=== PATIENT | female | born 1975 | race Caucasian/White ===

== ENCOUNTER → 2017-01-18 | Outpatient (CLI) | payer OTHER ==
--- NOTE | 2017-01-18 17:27 | US ---
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 GLAND SIZE: Right Lobe: 5.0 x 1.8 x 1.8 cm Overall Parenchyma: heterogenous Left Lobe: 5.5 x 2.1 x 2.2 cm Overall Parenchyma: heterogeneous Isthmus Thickness: 0.2 cm NODULES RIGHT: # of nodules measured on right: 4 1. 0.9 X 0.6 x 0.6 cm hypoechoic solid nodule at the upper pole with well-defined margins. This nod ule is wider than tall and shows intranodular vascularity. Prior size: 0.9 x 0.6 x 0.6 cm 2. 1.1 X 0.8 x 0.7 cm hypoechoic solid nodule at the mid pole with well-defined margin. This nodule is taller than wide and shows intranodular vascularity. Prior size: 1.0 x 0.6 x 0.7 cm 3. 0.7 X 0.6 x 0.4 cm hypoechoic solid nodule at the mid pole with well-defined margins. This nodul e is taller than wide and shows intranodular vascularity. Prior size: 1.1 x 0.6 x 0.9 cm 4. 0.7 X 0.4 x 0.7 cm hypoechoic solid nodule at the lateral/mid/lower pole with well-defined margin s . This nodule is wider than tall and shows no intranodular vascularity. Prior size: 1.2 x 0.8 x 1.1 cm LEFT: # of nodules measured on left: 2 1. 0.9 X 0.7 x 0.6 cm hypoechoic solid nodule at the upper pole with well-defined margins. This no dule is taller than wide and shows no intranodular vascularity. Prior size: 0.8 x 0.6 x 0.8 cm 2. 2.7 X 1.8 x 2.1 cm hypoechoic solid nodule at the mid/lower pole with well-defined margins . Thi s nodule is wider than tall and shows intranodular vascularity. Prior size: 2.8 x 1.5 x 2.0 cm ISTHMUS: # of nodules measured in the isthmus: 0 Bilateral neck scanned, no evidence of lymphadenopathy. No definite increasing thyroid abnormality. IMPRESSION: Numerous bilateral nodules. There is a dominant left-sided thyroid mass that is not changed in size c ompared to 03/05/2016. No increasing thyroid abnormality seen.
== END | disposition home or self-care (01) ==
LOC: RADUSWWP 16:38
PROVIDERS: ATTEND Internal Medicine
DX: E04.2 Nontoxic multinodular goiter (principal)
CPT/HCPCS: 76536

== ENCOUNTER → 2017-08-22 | Outpatient (CLI) | payer OTHER ==
--- NOTE | 2017-08-22 10:34 | US ---
EXAMINATION TYPE: US thyroid st tissue head/neck DATE OF EXAM: 08/22/2017 COMPARISON: US dated 01/18/2017 CLINICAL HISTORY: nontoxic multi nod goiter, E04.2. GLAND SIZE: Right Lobe: 4.9 x 1.9 x 1.5 cm Overall Parenchyma: homogenous Left Lobe: 5.5 x 1.7 x 2.2 cm Overall Parenchyma: homogeneous Isthmus Thickness: 0.3 cm NODULES RIGHT: # of nodules measured on right: 4 1. 0.9 X 0.6 x 0.6 cm hypoechoic solid nodule at the upper pole with well-defined margins . This n odule is wider than tall and shows intranodular vascularity. Prior size: 0.9 x 0.6 x 0.6 cm 2. 1.1 X 0.7 x 0.8 cm hypoechoic solid nodule at the mid pole with well-defined margins. This nodul e is wider than tall and shows intranodular vascularity. Prior size: 1.1 x 0.7 x 0.8 cm 3. 0.7 X 0.6 x 0.5 cm hypoechoic solid nodule at the mid pole with well-defined margins. This nodul e is wider than tall and shows intranodular vascularity. Prior size: 0.7 x 0.6 x 0.4 cm 4. 1.1 X 0.8 x 1.0 cm hypoechoic solid nodule at the lower pole with well-defined margins. This nod ule is wider than tall and shows intranodular vascularity. Prior size: 0.7 x 0.4 x 0.7 cm 2 priors ago: 1.2 x 0.8 x1.1cm LEFT: # of nodules measured on left: 2 1. 0.9 X 0.7 x 0.6 cm hypoechoic solid nodule at the upper pole with well-defined margins. This no dule is taller than wide and shows intranodular vascularity. Prior size: 0.9 X 0.7 x 0.6 cm 2. 2.9 X 1.7 x cm 2.2 solid nodule at the mid pole with well-defined margins. This nodule is wider than tall and shows intranodular vascularity. Prior size: 2.7 x 1.5 x 2.0 cm ISTHMUS: # of nodules measured in the isthmus: 0 IMPRESSION: Multiple thyroid nodules, no significant interval changes evident
== END | disposition home or self-care (01) ==
LOC: RADUSWWP 09:00
PROVIDERS: ATTEND Internal Medicine
DX: E04.2 Nontoxic multinodular goiter (principal)
CPT/HCPCS: 76536

== ENCOUNTER → 2017-09-09 | Outpatient (CLI) | payer OTHER ==
--- NOTE | 2017-09-10 09:04 | MM ---
Reason for exam: screening (asymptomatic). Last mammogram was performed 4 years and 10 months ago. History: Patient had first child at age 33. Family history of breast cancer in maternal grandmother at age 50. Took hormonal contraceptives for 5 years. Physical Findings: A clinical breast exam by your physician is recommended on an annual basis and results should be correlated with mammographic findings. MG Screening Mammo w CAD Bilateral CC and MLO view(s) were taken. Prior study comparison: October 29, 2012, bilateral digital screening mammo w/CAD. The breast tissue is heterogeneously dense. This may lower the sensitivity of mammography. There is no discrete abnormality. No significant changes when compared with prior studies. ASSESSMENT: Negative, BI-RAD 1 RECOMMENDATION: Routine screening mammogram of both breasts in 1 year.
== END | disposition home or self-care (01) ==
LOC: RADMAMWWP 10:20
PROVIDERS: ATTEND Obstetrics & Gynecology
DX: Z12.31 Encounter for screening mammogram for malignant neoplasm of breast (principal)
CPT/HCPCS: 77067

== ENCOUNTER → 2018-03-20 | Outpatient (CLI) | payer OTHER ==
--- NOTE | 2018-03-20 11:10 | US ---
EXAMINATION TYPE: US thyroid st tissue head/neck DATE OF EXAM: 03/20/2018 COMPARISON: US CLINICAL HISTORY: E04.2 Nontoxic multinodular goiter. GLAND SIZE: Right Lobe: 5.1 x 1.5 x 1.6 cm Overall Parenchyma: homogenous Left Lobe: 5.9 x 1.8 x 2.1 cm Overall Parenchyma: homogeneous Isthmus Thickness: 0.2 cm NODULES RIGHT: # of nodules measured on right: 4 1. 0.9 X 0.6 x 0.6 cm hypoechoic solid nodule at the upper pole with well- defined margins . This nod ule is wider than tall and shows intranodular vascularity. Prior size: 0.9 x 0.5 x 0.6 cm 2. 1.1 X 0.7 x 0.8 cm hypoechoic solid nodule at the mid pole with well- defined margins. This nodule is wider than tall and shows intranodular vascularity. Prior size: 1.1 x 0.7 x 0.8 cm 3. 0.7 X 0.6 x 0.5 cm hypoechoic solid nodule at the mid pole with well- defined margins. This nodul e is wider than tall and shows intranodular vascularity. Prior size: 0.7 x 0.6 x 0.5 cm 4. 1.1 X 0.8 x 1.0 cm hypoechoic solid nodule at the lower pole with well- defined margins. This nodu le is wider than tall and shows intranodular vascularity. Prior size: 1.1 X 0.8 x 1.0cm LEFT: # of nodules measured on left: 2 1. 0.9 X 0.7 x 0.6 cm hypoechoic solid nodule at the upper pole with well- defined margins. This nodu le is taller than wide and shows intranodular vascularity. Prior size: 0.9 X 0.7 x 0.6 cm 2. 2.9 X 1.7 x cm 2.2cm solid nodule at the mid pole with well-defined margins. This nodule is wider than tall and shows intranodular vascularity. Prior size: 2.9 X 1.7 x cm 2.2 cm Bilateral neck scanned, no evidence of lymphadenopathy. IMPRESSION: Stable bilateral thyroid nodules including nodules larger than one centimeter.
== END | disposition home or self-care (01) ==
LOC: RADUSWWP 09:31
PROVIDERS: ATTEND Internal Medicine
DX: E04.2 Nontoxic multinodular goiter (principal)
CPT/HCPCS: 76536

== ENCOUNTER → 2019-02-25 | Outpatient (CLI) | payer OTHER ==
--- NOTE | 2019-02-26 09:16 | MM ---
Reason for exam: screening (asymptomatic). Last mammogram was performed 1 year and 6 months ago. History: Patient had first child at age 33. Family history of breast cancer in maternal grandmother at age 50. Took hormonal contraceptives for 5 years. Physical Findings: A clinical breast exam by your physician is recommended on an annual basis and results should be correlated with mammographic findings. MG Screening Mammo w CAD Bilateral CC and MLO view(s) were taken. Prior study comparison: September 09, 2017, bilateral MG screening mammo w CAD. October 29, 2012, bilateral digital screening mammo w/CAD. The breast tissue is heterogeneously dense. This may lower the sensitivity of mammography. There are benign appearing round calcifications in the left breast. ASSESSMENT: Benign, BI-RAD 2 RECOMMENDATION: Routine screening mammogram of both breasts in 1 year.
== END | disposition home or self-care (01) ==
LOC: RADMAMWWP 15:06
PROVIDERS: ATTEND Obstetrics & Gynecology
DX: Z12.31 Encounter for screening mammogram for malignant neoplasm of breast (principal)
CPT/HCPCS: 77067

== ENCOUNTER → 2020-04-12 | Outpatient (CLI) | payer BC ==
[2020-04-12 17:40] LABS: T4, Free (Free Thyroxine) 1.03 ng/dL (0.78-2.19)
--- NOTE | 2020-04-13 09:49 | US ---
EXAMINATION TYPE: US thyroid st tissue head/neck DATE OF EXAM: 04/12/2020 COMPARISON: 03/20/2018 CLINICAL HISTORY: NONTOXIC MULTINODULAR GOITER E04.2. follow up on previous nodules, multiple FNA's i n 2016 GLAND SIZE: Right Lobe: 5.3 x 1.7 x 2.1 cm Overall Parenchyma: heterogenous Left Lobe: 6.0 x 2.5 x 2.0 cm Overall Parenchyma: heterogeneous Isthmus Thickness: 0.3 cm NODULES RIGHT: # of nodules measured on right: 4. There may be increased vascularity within the right lower lobe nodules. 1. 1.2 X 1.3 x 0.8 cm hypoechoic solid nodule at the mid pole with well-defined margins; present wi th microcalcifications. This nodule is wider than tall and shows intranodular vascularity. Prior size: 1.1 x 0.8 x 1.0 cm 2. 1.2 X 0.8 x 1.0 cm hypoechoic mixed nodule at the mid pole with well-defined margins; present wit h microcalcifications. This nodule is wider than tall and shows intranodular vascularity. Prior size: 1.1 x 0.7 x 0.8 cm 3. 1.1 X 0.6 x 1.0 cm hypoechoic solid nodule at the mid pole with well-defined margins. This nodul e is wider than tall and shows intranodular vascularity. Prior size: 0.7 x 0.5 x 0.6 cm 4. 1.1 X 0.8 x 0.6 cm hypoechoic solid nodule at the upper pole with well-defined margins. This nod ule is wider than tall and shows intranodular vascularity. Prior size: 0.9 x 0.5 x 0.6 cm LEFT: # of nodules measured on left: 2 1. 3.4 X 2.4 x 1.7 cm hypoechoic mixed nodule at the mid pole with well-defined margins. This nodu le is wider than tall and shows intranodular vascularity. Prior size: 2.9 x 2.2 x 1.7 cm 2. 1.1 X 0.7 x 0.7 cm hypoechoic solid nodule at the upper pole with well-defined margins. This nod ule is wider than tall and shows intranodular vascularity. Prior size: 0.9 x 0.6 x 0.4 cm ISTHMUS: # of nodules measured in the isthmus: 0 Bilateral neck scanned, no evidence of lymphadenopathy. IMPRESSION: 1. Mild enlargement of both left and right thyroid nodules.
== END | disposition home or self-care (01) ==
LOC: RADUSWWP 15:34
PROVIDERS: ATTEND Internal Medicine
DX: E04.2 Nontoxic multinodular goiter (principal)
CPT/HCPCS: 36415; 76536; 84439; 84443; 84480

== ENCOUNTER → 2020-07-20 | Outpatient (CLI) | payer BC ==
--- NOTE | 2020-07-22 13:30 | MM ---
Reason for exam: screening (asymptomatic). Last mammogram was performed 1 year and 5 months ago. History: Patient had first child at age 33. Family history of breast cancer in maternal grandmother at age 50. Took hormonal contraceptives for 5 years. Physical Findings: A clinical breast exam by your physician is recommended on an annual basis and results should be correlated with mammographic findings. MG Screening Mammo w CAD Bilateral CC and MLO view(s) were taken. Prior study comparison: February 25, 2019, bilateral MG screening mammo w CAD. September 09, 2017, bilateral MG screening mammo w CAD. The breast tissue is heterogeneously dense. This may lower the sensitivity of mammography. No significant changes when compared with prior studies. ASSESSMENT: Benign, BI-RAD 2 RECOMMENDATION: Routine screening mammogram of both breasts in 1 year.
== END | disposition home or self-care (01) ==
LOC: RADMAMWWP 16:02
PROVIDERS: ATTEND Obstetrics & Gynecology
DX: Z12.31 Encounter for screening mammogram for malignant neoplasm of breast (principal)
CPT/HCPCS: 77067

== ENCOUNTER → 2020-08-03 | Outpatient (CLI) | payer BC ==
[2020-08-03 20:54] LABS: Thyroid Peroxidase Antibodies 37.1 U/mL (0.0-60.0)
== END | disposition home or self-care (01) ==
LOC: LABWHC1 14:15
PROVIDERS: ATTEND Internal Medicine
DX: E04.2 Nontoxic multinodular goiter (principal); R94.6 Abnormal results of thyroid function studies
CPT/HCPCS: 36415; 84439; 84443; 84445; 84480; 86376; 86800

== ENCOUNTER → 2020-08-23 | Outpatient (CLI) | payer BC, OTHER ==
--- NOTE | 2020-08-23 20:33 | CONS ---
CONSULTATION REASON FOR CONSULTATION: Movement disorder, nocturnal. This is a 45-year-old female patient, healthy, without any major medical problems or comorbidities. 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 She is noticing that she has increased fatigue recently. At the same time, she has had issues with abnormal leg movement activity since childhood. The patient reports that while sleeping on her abdomen, her legs thump, and this activity would go on unless her bed partner put her hand on her legs to stop the movement. In most cases, stopping one leg from thumping will lead to the other leg doing the same. The exact timing and duration and repetitiveness of this movement activity is not clear based on the description given by the patient. No arm movements unless the patient is sleeping on her back, and she sometimes raises her arms and has her harms reach her face or head. Note that she does not wake up during these episodes and she continues to maintain her sleep. No history of any seizure activity occurring during the day. No history of any epilepsy, although her son, who is age 11, has a history of generalized convulsive tonic clonic seizure activity and seizures and has been maintained on treatment with Depakote. He has done well over the years. As for the patient, she never had any seizure activity, no loss of consciousness, and she admits having snoring. No witnessed apneas. No symptoms to suggest restless legs syndrome. No creepy-crawly sensation involving the lower extremities. No sleepwalking or sleeptalking. No dreams. No aggressive behavior to indicate any form of REM behavioral disorder. No head trauma. No substance abuse. No history of seizures. No history of strokes. No history of any other medical problems and comorbidities, and no other complaints otherwise. She is feeling a bit more tired and sleepy during the day. PAST MEDICAL HISTORY: Scoliosis of the spine; otherwise negative. PAST SURGICAL HISTORY: Appendectomy and tonsillectomy. SOCIAL HISTORY: The patient is a nonsmoker. No history of alcoholism. No history of IV drugs. FAMILY HISTORY: Positive for seizure activity/epilepsy in her son. ALLERGIES: ERYTHROMYCIN and SEASONAL ALLERGIES. MEDICATIONS: None. REVIEW OF SYSTEMS: Fourteen-point review of systems was done. Positive findings are all mentioned above in the history of present illness. PHYSICAL EXAMINATION: HER CURRENT VITALS: BP is 125/76, pulse 66, respirations 12, temperature 98.3, saturation 99% on room air. BMI 31. Cardale score is 9. Neck size 13-1/2 inches. Weight is 181. GENERAL APPEARANCE: Calm, comfortable. No acute distress. HEAD: Atraumatic, normocephalic. NECK: Supple. No JVD. No goiter or neck masses. Mallampati class IV. LUNGS: Clear to auscultation. HEART: Heart sounds are regular rate and rhythm. Normal S1, S2. No S3, S4. No murmurs. ABDOMEN: Soft, nontender. No organomegaly. EXTREMITIES: No edema. No cyanosis or clubbing. IMPRESSION: Nocturnal movement disorder, not well characterized based on the description given by the patient. Nevertheless, this seems to be a benign disorder. It has been going on for many years and the patient reports these movements whenever she is sleeping on her stomach in a prone body position. These limb activities are less likely to occur when she is on her side or on her back. No clear indication for any chronic sleep breathing disorder. The presentation is not typical of sleep-related muscle cramps or seizure activity or myoclonus. Again the description is not typical of rhythmic movement disorder. It is possible that we may be dealing with a hypnagogic foot tremor and alternating leg muscle activation, which is a condition or disorder that is generally picked up by polysomnogram. As mentioned, epilepsy is felt to be less likely. PLAN: This patient has rhythmic movement disorder during sleep. No clear indication for underlying epilepsy. No clear indication of an underlying parasomnia. Will proceed with a screening polysomnogram to evaluate this abnormality. Will need to rule out the possibility of any seizure activity. Will need to rule out possibility of REM behavioral disorder or any other parasomnias. Treatment is to follow if needed. MMODL / IJN: [id number] /
== END ==
LOC: SLEEP 15:08
PROVIDERS: ATTEND Internal Medicine Critical Care Medicine
DX: G47.69 Other sleep related movement disorders (principal)
CPT/HCPCS: 99211

== ENCOUNTER → 2021-09-08 | Outpatient (CLI) | payer BC ==
--- NOTE | 2021-09-12 10:07 | MM ---
Reason for exam: screening (asymptomatic). Last mammogram was performed 1 year and 2 months ago. History: Patient had first child at age 33. Family history of breast cancer in maternal grandmother at age 50. Took hormonal contraceptives for 5 years. Physical Findings: A clinical breast exam by your physician is recommended on an annual basis and results should be correlated with mammographic findings. MG Screening Mammo w CAD Bilateral CC and MLO view(s) were taken. Prior study comparison: July 20, 2020, bilateral MG screening mammo w CAD. February 25, 2019, bilateral MG screening mammo w CAD. There are scattered fibroglandular densities. There are benign appearing round calcifications in the left breast. There is no discrete abnormality. ASSESSMENT: Benign, BI-RAD 2 RECOMMENDATION: Routine screening mammogram of both breasts in 1 year.
== END | disposition home or self-care (01) ==
LOC: RADMAMWWP 16:07
PROVIDERS: ATTEND Obstetrics & Gynecology
DX: Z12.31 Encounter for screening mammogram for malignant neoplasm of breast (principal); Z80.3 Family history of malignant neoplasm of breast
CPT/HCPCS: 77067

== ENCOUNTER → 2022-04-20 | Outpatient (CLI) | payer BC ==
--- NOTE | 2022-04-20 16:21 | US ---
EXAMINATION TYPE: US thyroid st tissue head/neck DATE OF EXAM: 04/20/2022 COMPARISON: NONE CLINICAL HISTORY: E04.1 NONTOXIC SINGLE THYROID NODULE. Thyroid nodules. GLAND SIZE: Right Lobe: 5.6 x 1.9 x 1.5 cm Overall Parenchyma: heterogenous Left Lobe: 6.1 x 1.9 x 1.9 cm Overall Parenchyma: heterogeneous Isthmus Thickness: 0.3 cm NODULES Bilateral thyroid nodules which are not terribly different given differences in measuring technique. RIGHT: # of nodules measured on right: 4 1. 1.2 X 0.8 x 1.2 cm, mid , solid or almost completely solid, hypoechoic nodule, which is wider edmundo n tall, with smooth margins, without echogenic foci. Prior size: 1.2 x .8 x 1.3 cm 2. 1.1 X 0.6 x 1.0 cm, mid , solid or almost completely solid, hypoechoic nodule, which is wider th an tall, with smooth margins, without echogenic foci. Prior size: 1.2 x 0.8 x 1.0 cm 3. 1.1 X 0.7 x 0.7 cm, mid , solid or almost completely solid, hypoechoic nodule, which is wider th an tall, with smooth margins, without echogenic foci. Prior size: 1.1 x 0.6 x 1.0 cm LEFT: # of nodules measured on left: 2 1. 3.4 X 1.6 x 2.6 cm, lower , solid or almost completely solid, hypoechoic nodule, which is wider than tall, with smooth margins, without echogenic foci. Prior size: 3.4 x 1.7 x 2.4 cm 2. 1.1 X 0.6 x 0.9 cm, upper , solid or almost completely solid, hypoechoic nodule, which is wider than tall, with smooth margins, without echogenic foci. Prior size: 1.1 x 0.7 x 0.7 cm ISTHMUS: # of nodules measured in the isthmus: 0 Bilateral neck scanned, no evidence of lymphadenopathy. IMPRESSION: Multiple thyroid nodules bilaterally, Overall majority of these are TIRADS Score: 4. Continued attent ion on follow-up imaging in one year consider biopsy of any 1.5 cm if not already performed. TIRADS Category 4: Moderately Suspicious Composition: Solid or almost completely solid (2 points). Echogenicity: Hypoechoic (2 points). Shape: Wider than tall (0 points). Margin: Smooth (0 points). Echogenic foci: None or large comet-tail artifacts (0 points) Recommendation: If >1.5cm: FNA; If >1cm: Follow up at 1,3,5 years
== END | disposition home or self-care (01) ==
LOC: RADUSWWP 15:28
PROVIDERS: ATTEND Family Medicine
DX: E04.2 Nontoxic multinodular goiter (principal)
CPT/HCPCS: 76536

== ENCOUNTER → 2023-12-26 | Outpatient (CLI) | payer BC ==
[2023-12-26 15:47] LABS: T4, Free (Free Thyroxine) 1.13 ng/dL (0.80-1.80)
== END | disposition home or self-care (01) ==
LOC: LABWHC1 11:00
PROVIDERS: ATTEND Internal Medicine Endocrinology, Diabetes & Metabolism
DX: E05.00 Thyrotoxicosis with diffuse goiter without thyrotoxic crisis or storm (principal)
CPT/HCPCS: 36415; 84439; 84443; 84481

== ENCOUNTER → 2024-03-02 | Outpatient (CLI) | payer BC ==
--- NOTE | 2024-03-17 09:25 | CT ---
EXAMINATION TYPE: CT iac wo con DATE OF EXAM: 03/02/2024 COMPARISON: None HISTORY: Tinnitus and hearing loss x years CT DLP: 142.7 mGycm Automated exposure control for dose reduction was used. Contrast: None Technique: Axial images 1 mm thick sections. Reconstructed images in the coronal plane. FINDINGS: Maxillary sinuses are clear. Mastoid air cells are clear. Mild mucosal thickening is in ethmoid air c ells. Sphenoid sinuses are clear. Frontal sinuses are clear. Internal auditory canals appear normal without expansion or erosion. Semicircular canals appear holly l. Cochlea are unremarkable. Incus and malleus have normal orientation middle ears are clear. Externa l auditory canals are unremarkable no suspicious cerebellar pontine angle mass is evident. There is mild right septal deviation. Right oswaldo bullosa is present. Ostiomeatal units are patent. IMPRESSION: 1. NO SUSPICIOUS ABNORMALITY TO ACCOUNT FOR TINNITUS AND HEARING LOSS. [facility], Workstation: [id number], 03/17/2024 9:23 AM
== END | disposition home or self-care (01) ==
LOC: RADCTMAIN 17:05
PROVIDERS: ATTEND Otolaryngology
DX: H93.19 Tinnitus, unspecified ear (principal); H91.90 Unspecified hearing loss, unspecified ear
CPT/HCPCS: 70480

== ENCOUNTER → 2024-03-04 | Outpatient (CLI) | payer BC ==
--- NOTE | 2024-03-10 07:55 | MM ---
Reason for Exam: Screening (asymptomatic). Last mammogram was performed 1 year(s) and 2 month(s) ago. Patient History: Menarche at age 14. First Full-Term at age 33. Late child-bearing (after 32). Patient has history of breast feeding. Currently using Hormonal Contraceptives, for 15 years. Maternal grandmother had breast cancer, age 50. Risk Values: Jessi 5 year model risk: 1.2%. NCI Lifetime model risk: 12.8%. Prior Study Comparison: 07/20/2020 Bilateral Screening Mammogram, [facility]. 09/08/2021 Bilateral Screening Mammogram, [facility]. 01/07/2023 Bilateral MG screening mammo w CAD, [facility]. Tissue Density: The breasts are heterogeneously dense, which may obscure small masses. Findings: Analyzed By CAD. There is no suspicious group of microcalcifications or new suspicious mass in either breast. 9 calcifications left breast. Overall Assessment: Benign, BI-RAD 2 Management: Screening Mammogram of both breasts in 1 year. . Patient should continue monthly self-breast exams. A clinical breast exam by your physician is recommended on an annual basis. This exam should not preclude additional follow-up of suspicious palpable abnormalities. Note on Jessi scores and lifetime risk: 1. A Jessi score greater than 3% is considered moderate risk. If this is the case, consider specialist referral to assess eligibility for a risk reducing agent. 2. If overall lifetime risk for the development of breast cancer is 20% or higher, the patient may qualify for future screening with alternating mammogram and breast MRI. [facility], , 03/10/2024 7:52 AM. Electronically signed and approved by: Fredy Calvin M.D. Radiologis
== END | disposition home or self-care (01) ==
LOC: RADMAMWWP 15:33
PROVIDERS: ATTEND Obstetrics & Gynecology
DX: Z12.31 Encounter for screening mammogram for malignant neoplasm of breast
CPT/HCPCS: 77067

== ENCOUNTER → 2024-03-09 | Outpatient (CLI) | payer BC ==
[2024-03-09 21:48] LABS: T4, Free (Free Thyroxine) 0.9 ng/dL (0.80-1.80)
== END | disposition home or self-care (01) ==
LOC: LABWHC1 15:28
PROVIDERS: ATTEND Internal Medicine Endocrinology, Diabetes & Metabolism
DX: E05.00 Thyrotoxicosis with diffuse goiter without thyrotoxic crisis or storm (principal)
CPT/HCPCS: 36415; 84439; 84443; 84481

== ENCOUNTER → 2024-08-27 | Outpatient (CLI) | payer BC ==
[2024-08-28 02:56] LABS: T4, Free (Free Thyroxine) 1.11 ng/dL (0.80-1.80)
== END | disposition home or self-care (01) ==
LOC: LABWHC1 15:32
PROVIDERS: ATTEND Internal Medicine Endocrinology, Diabetes & Metabolism
DX: E05.00 Thyrotoxicosis with diffuse goiter without thyrotoxic crisis or storm (principal)
CPT/HCPCS: 36415; 84439; 84443; 84481

== ENCOUNTER 2024-12-04 12:28 | Day surgery (SDC) | payer BC ==
[2024-12-03 12:23] VITALS: BMI 30.1
[2024-12-04 13:01] VITALS: TEMP 97.8
[2024-12-04] MEDS: LACTATED RINGERS 1,000 ML IV SCH (13:08)
[2024-12-04] MEDS: IV FLUID CONTINUATION 1,000 ML IV ONE ×2 (13:11→14:14)
[2024-12-04] MEDS ORDERED: PROPOFOL 10 MG/ML 20 ML VIAL IV ONE (13:57)
[2024-12-04] MEDS ORDERED: LIDOCAINE 1% INJ 10MG/ML (20 ML MDV) ONE (13:57)
--- NOTE | 2024-12-04 14:09 | P.PCN ---
Date of Procedure: 12/04/24 Procedure(s) Performed: BRIEF HISTORY: Patient is a 49-year-old pleasant white female scheduled for an elective colonoscopy as a part of screening for colon cancer. PROCEDURE PERFORMED: Colonoscopy with snare polypectomy. PREOPERATIVE DIAGNOSIS: Screening for colon cancer. IV sedation per Anesthesia. PROCEDURE: After informed consent was obtained, the patient, was brought into the endoscopy unit. IV sedation was administered by Anesthesia under continuous monitoring. Digital rectal examination was normal. Initially the Olympus CF-160 flexible video colonoscope was then inserted in the rectum, gradually advanced into the cecum without any difficulty. Careful examination was performed as the scope was gradually being withdrawn. Ileocecal valve and the appendiceal orifice were visualized and appeared normal. Prep was excellent. Mucosa of the cecum, appeared normal. In the ascending colon there was a 7 mm flat polyp that was removed by cold snare polypectomy. Rest of the ascending colon, transverse colon, descending colon, sigmoid colon, and rectum appeared normal. Retroflexion was performed in the rectum and no lesions were seen. The patient tolerated the procedure well. IMPRESSION: 7 mm flat ascending colon polyp status post cold snare polypectomy Rest of the colon appeared normal RECOMMENDATIONS: Findings of this examination were discussed with the patient as well as her family. She was advised to follow-up with the biopsy results. If the biopsy reveals adenoma she can have repeat colonoscopy in 5 years..
[2024-12-04 14:30] VITALS: BP 120/88; PULSE 87; RESP 16
== END 2024-12-04 14:45 | disposition home or self-care (01) ==
LOC: ORWHC2ENDO 12:28
PROVIDERS: ATTEND Internal Medicine Gastroenterology
DX: Z12.11 Encounter for screening for malignant neoplasm of colon (principal); K63.5 Polyp of colon
CPT/HCPCS: 81025; 45385; J2003; J2704; 88305

== ENCOUNTER → 2024-12-25 | Outpatient (CLI) | payer BC ==
--- NOTE | 2024-12-25 10:53 | XR ---
EXAMINATION TYPE: XR cervical spine comp DATE OF EXAM: 12/25/2024 10:41 AM COMPARISON: 12/25/2024. CLINICAL INDICATION: Female, 49 years old with history of M54.6 M54.16 G89.29 M41.9 BACK PAIN; PHH, p ain TECHNIQUE: The cervical spine was imaged in frontal, lateral, odontoid and bilateral oblique. FINDINGS: The osseous structures show kyphotic alignment without evidence of an acute fracture. There are osteo phytes noted throughout the cervical spine on the anterior and lateral aspects of the vertebral tariq s. The intervertebral disk spaces are narrowed at multiple levels. Pedicles are intact. Soft tissues are within normal limits. The odontoid appears intact. IMPRESSION: 1. No fracture or dislocation. 2. Mild to moderate degenerative disc disease changes of the cervical spine. [facility], , 12/25/2024 10:50 AM
--- NOTE | 2024-12-25 10:54 | XR ---
EXAMINATION TYPE: XR thoracic spine 2V DATE OF EXAM: 12/25/2024 10:41 AM COMPARISON: 12/02/2015. CLINICAL INDICATION: Female, 49 years old with history of M54.6 M54.16 G89.29 M41.9 BACK PAIN; PHH, p ain TECHNIQUE: XR thoracic spine 2V views of the spine in Frontal, swimmers and lateral projections. FINDINGS: No evidence of acute fracture. There is scattered multilevel disk space narrowing without loss of ve rtebral body height. There is scoliotic alignment of the thoracic vertebral bodies with apex T8-T9, a ngle 30 degrees. Scattered osteophyte formation along the anterior and lateral aspects of the vertebr al bodies. Neural foramen are patent given limitations of this exam. Spinal canal appears patent. IMPRESSION: 1. No acute osseous pathology. 2. Wqhe-bo-hvasculu multilevel degeneration changes of the spine. 3. Scoliosis covering Chambers angle 30 degrees similar to prior. [facility], , 12/25/2024 10:51 AM
== END | disposition home or self-care (01) ==
LOC: RADXRMAIN 09:53
PROVIDERS: ATTEND Family Medicine
DX: M50.30 Other cervical disc degeneration, unspecified cervical region (principal); M47.816 Spondylosis without myelopathy or radiculopathy, lumbar region; M41.86 Other forms of scoliosis, lumbar region; G89.29 Other chronic pain
CPT/HCPCS: 72050; 72070